=== PATIENT | male | born 2000 | race Hispanic/Latino ===

== ENCOUNTER 2024-09-12 10:09 | Emergency (ER) | payer SELFPAY ==
--- NOTE | ~2024-09-12 | XR_ITS ---
Clinical Indication: Chest pain PA and lateral views of the chest: Comparison: None Findings: The lungs are clear, without evidence of focal consolidation or pleural effusion. Cardiome diastinal silhouette is within normal limits. Bones and soft tissues are unremarkable. Impression: Normal chest. Reviewed, dictated and finalized at location . Impression: Normal chest.
[2024-09-12 10:10] VITALS: BP 129/63; PULSE 72; RESP 16; TEMP 36.4; O2SAT 100
[2024-09-12 11:59] VITALS: BP 120/61; PULSE 57; RESP 18; O2SAT 100
--- NOTE | 2024-09-12 12:30 | ECG_ITS ---
Test Date: 2024-09-12 12:40:15 Measurements Intervals [place] Rate: 62 P: 59 MT: 134 QRS: 59 QRSD: 98 T: 24 QT: 380 QTc: 387 Interpretive Statements SINUS RHYTHM EARLY PRECORDIAL R/S TRANSITION PEAKED T WAVES- CONSIDER HYPERKALEMIA BASELINE ARTIFACT- I, II, III, AVR, AVL, AVF, V1-V2 ABNORMAL ECG No previous ECG available for comparison Electronically Signed On 09-12-2024 12:57:40 CDT by Lokesh Suero D.O.
[2024-09-12 12:44] LABS: Basophils Percent Auto 0.3 % (0.2-1.2); Eosinophils Percent Auto 0.6 % (0-4.4); Hematocrit 39.4 % (42.0-52.0); Hemoglobin 13.3 g/dL (14.0-18.0); Immature Granulocyte Absolute 0.01 K/mm3 (0.00-0.031); Immature Granulocyte Percent A 0.2 % (0-0.5); Lymphocytes Absolute Auto 1.77 K/mm3 (0.9-3.2); Lymphocytes Percent Auto 27.6 % (18.3-44.2); Mean Corpuscular HGB Conc 33.8 g/dl (32-36); Mean Corpuscular Volume 88.9 fl (80-100); Mean Platelet Volume 11.6 fl (7.4-10.4); Monocytes Absolute Auto 0.4 K/mm3 (0.1-0.6); Monocytes Percent Auto 5.5 % (2.6-8.5); Neutrophils Absolute Auto 4.2 K/mm3 (1.3-6.7); Neutrophils Percent Auto 65.8 % (45.5-73.1); Platelet Count Result 223 k/mm3 (150-375); Red Blood Count 4.43 M/mm3 (4.6-6.20); Red Cell Distribution Width 12.8 % (11.5-14.5); White Blood Count 6.4 K/mm3 (4.5-10.0)
[2024-09-12 12:53] LABS: INR 1.1; Prothrombin Time 14.1 Seconds (11.1-14.7)
[2024-09-12 12:54] LABS: Partial Thromboplastin Time 33.1 Seconds (22.3-36.8)
[2024-09-12 12:56] LABS: Alanine Aminotransferase 34 U/L (6-50); Albumin Level 4.6 g/dL (3.5-5.1); Alkaline Phosphatase 81 U/L (38-126); Anion Gap 8 mmol/L (4-12); Aspartate Amino Transferase 37 U/L (17-59); Bilirubin,Total 1.2 mg/dL (0.2-1.3); Blood Urea Nitrogen 19 mg/dL (9-20); Carbon Dioxide 22 mmol/L (22-30); Chloride 107 mmol/L (98-107); Estimated CRCL calculation 124 ml/min; Estimated Glomerular Filt Rate > 60; Glucose 95 mg/dL (65-110); Lipase 46 U/L (23-300); Potassium 4.3 mmol/L (3.4-5.0); Sodium 137 mmol/L (137-145)
--- NOTE | 2024-09-12 12:58 | ED_ITS ---
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 Back pain also started around the same time. Feels chills but no recent fever. Much worse today to point he can't walk. Earlier this morning felt like he was having trouble breathing also but that has resolved. Related Data Allergies Allergy/AdvReac Type Severity Reaction Status Date / Time No Known Allergies Allergy Verified 09/12/24 12:21 Review of Systems 2 Review of Systems: All systems reviewed & are unremarkable except as noted in HPI and below Exam 2 Narrative: EXAMINATION OF ORGAN SYSTEMS/BODY AREAS: Constitutional: Vital signs per nursing GENERAL:[No acute distress, non-toxic appearing.] HEAD: Normal with no signs of head trauma. EYES: EOMI, conjunctiva normal ENT: Hearing grossly intact LUNGS: Nonlabored breathing. HEART: [Regular rate and rhythm] ABD: [Soft], [nontender to palpation] EXT: Normal range of motion BACK: Tenderness to palpation mid upper back SKIN: [No rashes or lesions.] NEURO: [Alert and oriented x 3. Diminished strength/sensation to bilateral lower extremities; hyperreflexia. Barely able to stand/ambulate.] PSYCH: Normal affect Course Vital Signs Vital signs: Vital Signs Temperature 97.5 F L 09/12/24 10:10 Pulse Rate 72 09/12/24 10:10 Respiratory Rate 16 09/12/24 10:10 Blood Pressure 129/63 09/12/24 10:10 Pulse Oximetry 100 09/12/24 10:10 Oxygen Delivery Room Air 09/12/24 10:10 Temperature 97.5 F L 09/12/24 10:10 Pulse Rate 57 L 09/12/24 11:59 Respiratory Rate 18 09/12/24 11:59 Blood Pressure 120/61 09/12/24 11:59 Pulse Oximetry 100 09/12/24 11:59 Oxygen Delivery Room Air 09/12/24 12:46 Medical Decision Making [facility] Narrative Medical decision making narrative: 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 Back pain also started around the same time. Feels chills but no recent fever. Much worse today to point he can't walk. Earlier this morning felt like he was having trouble breathing also but that has resolved. No recent trauma. On exam he does have some tenderness to the mid upper back, without overlying skin changes, he is barely able to stand up, he has diminished strength and sensation bilateral lower extremities, with hyper reflexia. I am highly concerned that he may have some spinal cord abnormality versus other cause of symptoms and will require Neurology and emergent MRI, which we unfortunately do not have here. Discussed my concern with the patient who is agreeable to transfer, [facility] Vital Signs Vital Signs: Vital Signs Temperature 97.5 F L 09/12/24 10:10 Pulse Rate 72 09/12/24 10:10 Respiratory Rate 16 09/12/24 10:10 Blood Pressure 129/63 09/12/24 10:10 Pulse Oximetry 100 09/12/24 10:10 Oxygen Delivery Room Air 09/12/24 10:10 Temperature 97.5 F L 09/12/24 10:10 Pulse Rate 57 L 09/12/24 11:59 Respiratory Rate 18 09/12/24 11:59 Blood Pressure 120/61 09/12/24 11:59 Pulse Oximetry 100 09/12/24 11:59 Oxygen Delivery Room Air 09/12/24 12:46 Lab Data 09/12/24 12:36 09/12/24 12:36 Labs: Lab Results 09/12/24 09/12/24 Range/Units 12:26 12:36 WBC 6.4 (4.5-10.0) K/mm3 RBC 4.43 L (4.6-6.20) M/mm3 Hgb 13.3 L (14.0-18.0) g/dL Hct 39.4 L (42.0-52.0) % MCV 88.9 (80-100) fl MCH 30.0 (26-34) pg MCHC 33.8 (32-36) g/dl RDW 12.8 (11.5-14.5) % Plt Count 223 (150-375) k/mm3 MPV 11.6 H (7.4-10.4) fl Immature Gran % (Auto) 0.2 (0-0.5) % Neut % (Auto) 65.8 (45.5-73.1) % Lymph % (Auto) 27.6 (18.3-44.2) % [place] % (Auto) 5.5 (2.6-8.5) % Eos % (Auto) 0.6 (0-4.4) % Baso % (Auto) 0.3 (0.2-1.2) % Lymph # (Auto) 1.77 (0.9-3.2) K/mm3 [place] # (Auto) 0.4 (0.1-0.6) K/mm3 Eos # (Auto) 0.0 (0-0.3) K/mm3 Baso # (Auto) 0.0 (0.0-0.1) K/mm3 Abs Immat Gran (auto) 0.01 (0.00-0.031) K/mm3 Absolute Neuts (auto) 4.2 (1.3-6.7) K/mm3 Absolute Nucleated RBC 0.000 (0.0-0.012) K/mm3 Nucleated RBC % 0.0 (0.0-0.2) % PT 14.1 (11.1-14.7) Seconds INR 1.1 APTT 33.1 (22.3-36.8) Seconds Sodium 137 (137-145) mmol/L Potassium 4.3 (3.4-5.0) mmol/L Chloride 107 (98-107) mmol/L Carbon Dioxide 22 (22-30) mmol/L Anion Gap 8 (4-12) mmol/L BUN 19 (9-20) mg/dL Creatinine 0.77 (0.7-1.3) mg/dL Estim Creat Clear Calc 124 ml/min Estimated GFR > 60 (59 - ) Glucose 95 (65-110) mg/dL Calcium 9.0 (8.4-10.2) mg/dL Total Bilirubin 1.2 (0.2-1.3) mg/dL AST 37 (17-59) U/L ALT 34 (6-50) U/L Alkaline Phosphatase 81 (38-126) U/L Troponin I < 0.012 (0.000-0.034) ng/mL Total Protein 7.0 (6.3-8.2) g/dL Albumin 4.6 (3.5-5.1) g/dL Lipase 46 (23-300) U/L Influenza A (RT-PCR) Negative (Negative) Influenza B (RT-PCR) Negative (Negative) RSV (RT-PCR) Negative (Negative) SARS-CoV-2 RNA (RT-PCR) Negative (Negative) Critical Care Time Critical Care Time Critical Care Time: Yes Total Critical Care Time: 41 Discharge Plan Discharge Clinical Impression: Bilateral leg weakness Patient Disposition: Acute Care Hospital Condition: Serious Patient Language: Nepali Follow-up/Referrals: UNKNOWN,DOCTOR [Primary Care Provider] -
[2024-09-12 13:07] LABS: Influenza A QL RT-PCR Negative (Negative); Influenza B QL RT-PCR Negative (Negative); RSV RNA, RT-PCR Negative (Negative); SARS-CoV-2 RNA PCR Negative (Negative)
[2024-09-12 13:08] LABS: Troponin I < 0.012 ng/mL (0.000-0.034)
[2024-09-12 13:49] VITALS: BP 121/63; PULSE 63; RESP 18; O2SAT 98
== END 2024-09-12 14:45 | disposition short-term general hospital (02) ==
PROVIDERS: Emergency Provider Emergency Medicine
DX: R53.1 Weakness (principal); Z20.822 Contact with and (suspected) exposure to COVID-19
CPT/HCPCS: 36415; 71046; 80053; 83690; 84484; 85025; 85610; 85730; 87637; 93005; 99285